=== PATIENT | female | born 2000 | race Caucasian/White ===

== ENCOUNTER 2021-06-19 20:16 | Outpatient (CLI) | payer OTHER ==
--- NOTE | 2021-06-19 21:22 | IPNPDOC ---
Text Note Date of Service The patient was seen on 06/19/21. NOTE Chief Complaint: Ms. Alcazar is a 20 year old G10 P[0] at [38+2] weeks gestation presenting to L&D triage for complaints of headache and hand swelling. Patient presents: spouse HPI: Reports she has had a headache for the past few days. Took 325mg tylenol earlier today a at 630 and 650mg after talking with this provider over the phone at 1830. States resting and tyelnol did not help with the frontal headache pain. Reports some swelling to hands making rings tight. States she drinks 3 bottles of water a day. Denies any leaking of fluid, vaginal bleeding. Reporting good movement. Denies any contractions. Denies any nausea, vomiting, RUQ pain today. Objective: VS: BP 127/71. P111 General: Alert. Well-appearing, in no acute distress PSYCH: Well groomed. Appropriate affect, normal mood. Conversed easily. Neuro: Oriented to time, place, and person. RESP: Unlabored breathing. CV: No cyanosis MSK: legs without edema bilaterally. minimal nonpitting edema to hands. Normal mvmt all extremities. Steady gait. Clarissa from a seated position without assistance. Obstetrical: FHR: 135 with moderate variability. Large accelerations present. No decels. Uterine irritability present. VTX by Sarahy A/P 20 year old G10 P[0] at [38+2] wks gestation evaluated in L&D triage for complaints of headache and swelling VSS and normal Benign physical exam Reactive NST, reassuring Plan: To increase PO hydration with water, rest. 2 regular strength tylenol every 4hrs as needed for pain. Educated on routine OB return precautions and warning signs. Follow up on [facility] as previously scheduled. KIRBY GUSTAFSON CNM Jun 19, 2021 21:22
== END 2021-06-19 21:23 | disposition home or self-care (01) ==
LOC: M LDO 20:16
PROVIDERS: ATTEND Advanced Practice Midwife
DX: O26.893 Other specified pregnancy related conditions, third trimester (principal); Z3A.38 38 weeks gestation of pregnancy; R51.9 Headache, unspecified; R22.33 Localized swelling, mass and lump, upper limb, bilateral
CPT/HCPCS: 59025; G0378; G0463

== ENCOUNTER 2021-07-05 00:40 | Inpatient (IN) | payer OTHER, SELFPAY ==
[2021-07-05] VITALS (39 sets, daily range): BP systolic 98–138; BP diastolic 53–87
[~2021-07-05] VITALS: Ht 160 cm; Wt 73.3 kg
[2021-07-05] MEDS ORDERED: LR 1,000 ML IV SCH ×2 (01:55→20:50)
[2021-07-05 02:17] LABS: HEMATOCRIT 34.2 % (36.0-47.0); HEMOGLOBIN 11.4 g/dl (12.0-15.5); MEAN CORPUSCULAR HEMOGLOBIN 28.4 pg (27.0-33.0); MEAN CORPUSCULAR HGB CONC 33.3 g/dl (32.0-36.5); MEAN CORPUSCULAR VOLUME 85.3 fl (80.0-96.0); PLATELET COUNT, AUTOMATED 234 10^3/uL (150-450); RED BLOOD COUNT 4.01 10^6/uL (4.00-5.40); WHITE BLOOD COUNT 9.4 10^3/uL (4.0-10.0)
--- NOTE | 2021-07-05 02:44 | HPEPDOC ---
Obstetrical History & Physical General Date of Admission Jul 05, 2021 at 01:44 History of Present Illness 20yo G1 at 40+3 presents for decreased movement which started earlier today. Denies vaginal bleeding, loss of fluid. Care Care: Good Care Dating Final EDC: Jul 01, 2021 Final EDC by: LMP, 1st trimester (US) Antepartum Course Height (inches): 63 Pre- weight (lbs.): 120 Admission Weight (lbs.): 161 Change in Weight (lbs.): 41 Past Medical History Past Obstetrical History : Past Obstetrical History: [employer] History: No pertinent history Past Medical History Medical History spina bifida oculta hip dysplasia [id number] syndrome Surgical History: Other (hip surgery, wisdom teeth) Family History Family History maternal grandmother - diabetes, high blood pressure, skin cancer maternal grandfather - heart attack Social History Marital Status: Family situation: Spouse/partner home Psychosocial History: No pertinent psych hx * Smoker: non-smoker Alcohol: Denies Drugs: denies Abuse Violence Screening Have you been hit/kicked/slapp: No Have you been sexually assault: No Imunizations Tdap status: current Influenza Status: current Allergies Coded Allergies: cefazolin (Verified Allergy, Intermediate, 07/05/21) Physical Examination Physical Examination GENERAL: Alert and oriented times three. ABDOMEN: Gravid and non-tender to touch. FETUS: Is vertex by ultrasound HEART RATE: Regular rate LUNGS: nonlabored breathing EXTREMITIES: No edema. Vital Signs/I&O Vital Signs Date Time Temp Pulse Resp B/P (MAP) Pulse Ox O2 Delivery O2 Flow Rate FiO2 07/05/21 01:01 97.8 101 18 110/73 (85) Laboratory Data 24H LABS Laboratory Tests 2 07/05/21 02:07: Nucleated Red Blood Cells % (auto) 0.0 CBC/BMP Laboratory Tests 07/05/21 02:07 Pertinent Laboratoy Data Blood Type: A+ RBC Antibody Screen: Negative Hepatitis B: Negative Rapid Plasma Reagin: Nonreactive Rubella: Immune Varicella: Immune Chlamydia/Gonorrhea: Negative Group B Streptococcus: Negative Quad Screen Test: Negative Cystic Fibrosis: Negative Glucose Tolerance Test: 142 Anatomy Ultrasound Ultrasound Date: February 10, 2021 Placenta Location: Anterior Normal Anatomy: Yes Placenta Previa: No Steroid Therapy Steroid Therapy: No Vaginal Examination Dilation: 1cm Effacement: 50% Station: -3 Cervical Consistency: Medium Cervical Position: Middle Presentation: Cephalic presentation Position: Vertex (occiput) Assessment Heart Rate (FHR): 130 Variability: Moderate Accelerations: Positive Decelerations: None Tocometer Contractions: Yes Frequency: every 2-5 min. Multi-drug resistant Organism: No history of MDRO Assessment/Plan Assessment Minerva Alcazar is a 20-year-old G1 at 40+3 weeks by LMP and 1T ultrasound. Presents to Labor and Delivery (L&D) for decreased movement. Bedside ultrasound revealed oligohydramnios MVP 1.7cm. Discussed recommendation for induction of labor for oligohydramnios and patient is amenable. She has a history of hip dysplasia currently shows enough range of movement to allow trial of labor. Also history of spina bifida oculta, anesthesia was consulted prior to admission to evaluate as epidural candidate. Plan Admit and orient. Loop Cutter and consent. Diet: clear liquid. Group B Streptococcus (GBS) [negative]. Labs and intravenous (IV) per unit protocol. Counseled on Pitocin and induction of labor (IOL). Lactated Ringers (LR): 125 mL/hr. Anticipate [normal spontaneous delivery ()]. C-S as appropriate. Labor and Delivery Counseling L&D consent We will deliver your baby through the vagina with possible assistance of forceps or vacuum device if needed for maternal or indications. Forceps and vacuum are devices that can assist with vaginal delivery when normal pushing efforts cannot achieve delivery on their own or when delivery is needed in an emergency for baby's well-being. Medications may be required to induce or augment (help) your labor in order to achieve a vaginal delivery. An episiotomy may be required to help your baby to delivery vaginally. You may also require repair of any lacerations or tears of your vagina or vulva that are caused by delivery. In some cases, emergencies can occur that require an emergency section delivery so quickly that there may not be enough time to stop and complete consent forms for section. Understand that if this occurs, your providers will discuss the need for a section with you before they proceed with surgery. section is the delivery of your baby through an incision in your abdomen. In some situations, section may be safer to mom and baby than continuing labor and is only performed when clinically indicated. Risks of vaginal delivery include but are not limited to: Bleeding, infection, injury to the vagina, pelvic structures, injury to baby, damage to the uterus, reactions to anesthesia, uterine rupture, risk of hysterectomy for life threatening bleeding, or . Medications used to induce or augment labor may increase your risk for infection, uterine tachysystole, uterine rupture, heart rate abnormalities, need for emergency delivery or possible hysterectomy, and hemorrhage. Additional risks for use of forceps and vacuum include: increased risk of perineal and vaginal lacerations, risk of urinary or bowel incontinence, increased risk of injury to baby with bruising, scratches, hematomas on the head, or intracranial bleeding. FERMIN CHAKRABORTY. DO Jul 05, 2021 02:44
[2021-07-05] MEDS ORDERED: BUTORPHANOL 2 MG/ML INJ (J0595) IV ONE (03:30)
[2021-07-05] MEDS ORDERED: PROMETHAZINE INJ 25 MG/ML VIAL (J2550) IM ONE (03:30)
[2021-07-05] MEDS ORDERED: OXYTOCIN 30 UNITS IN 0.9% NaCl 500ML IV BAG (J2590) As Ordered ONE ×3 (07:54→21:05)
[2021-07-05] MEDS ORDERED: METHYLERGONOVINE MALEATE 0.2 MG/ML VIAL (J2210) IM PRN (10:50)
[2021-07-05] MEDS ORDERED: LACTATED RINGER'S 1000 ML IV ONE (10:50)
[2021-07-05] MEDS ORDERED: OXYTOCIN INJ 10 UNITS/ML VIAL (J2590) IV PRN ×2 (10:50→19:10)
[2021-07-05] MEDS ORDERED: OXYTOCIN DRIP 30 UNITS in IV 1 EA IV PRN ×5 (10:50→19:10)
[2021-07-05 11:22] LABS: HIV 1&2 SCREEN CENTAUR NEGATIVE (NEGATIVE)
[2021-07-05] MEDS ORDERED: REFRIGERATOR IV KEYS XX PRN (13:20)
[2021-07-05] MEDS ORDERED: NALOXONE INJ 0.4MG/1ML VIAL (J2310 PER 1MG) IV PRN ×3 (13:20→20:35)
[2021-07-05] MEDS ORDERED: FENTANYL/ROPIVACAINE/NACL BAG 100 ML EPIDURAL SCH (13:20)
[2021-07-05] MEDS ORDERED: EPIDURAL/PCA KEYS XX PRN (13:20)
[2021-07-05] MEDS ORDERED: LACTATED RINGER'S 1000 ML IV PRN (13:20)
[2021-07-05] MEDS ORDERED: ONDANSETRON 4MG/2ML VIAL IV PRN ×3 (13:20→21:25)
[2021-07-05] MEDS ORDERED: diphenhydrAMINE 50MG/ML VIAL (J1200) IV PRN ×2 (13:20→20:35)
[2021-07-05] MEDS ORDERED: EPIDURAL COMMENT XX SCH (13:20)
[2021-07-05] MEDS: LR 1,000 ML IV SCH ×2 (13:58→16:20)
[2021-07-05] MEDS: ePHEDrine SULFATE 25 MG/5 ML(5MG/ML) SYRINGE IV PRN ×2 (14:02→14:08)
[2021-07-05] MEDS ORDERED: OXYTOCIN DRIP 30 UNITS in IV 1 EA IV SCH (14:30)
--- NOTE | 2021-07-05 15:01 | IPNPDOC ---
Text Note Date of Service The patient was seen on 07/05/21. NOTE 1459 CALLED RE PATIENT WITH DECELERATION AND SLOW RECOVERY. NOTED TO BE 9 CM QUICK DILITATION FROM 4 CM ALSO NOTED OLIGOHYDRAMNIOS CONTRACTIONS ADEQUATE WITHOUT AUGMENTATION WITH RESUSCITATION FHR BACK TO BASELINE . SAFE TP PROCEED VS,Fishbone, I+O VS, Fishbone, I+O Laboratory Tests 07/05/21 02:07 Vital Signs Date Time Temp Pulse Resp B/P (MAP) Pulse Ox O2 Delivery O2 Flow Rate FiO2 07/05/21 14:26 87 105/56 (72) 07/05/21 12:20 97.8 07/05/21 07:09 18 Oniel Montgomery MD Jul 05, 2021 15:01
--- NOTE | 2021-07-05 15:04 | IPNPDOC ---
Text Note Date of Service The patient was seen on 07/05/21. NOTE 07/05/21 REVIEW FOR PAIN MANAGEMENT HAD DENSON BULB IOL RE OLIGOHYDRAMNIOS BULB REMOVED 4 CM POSTERIOR STRETCHY. PLAN HAVE EPIDURAL THEN AROM . SAFE TO PROCEED VS,Corrie, I+O VS, Jassbone, I+O Laboratory Tests 07/05/21 02:07 Vital Signs Date Time Temp Pulse Resp B/P (MAP) Pulse Ox O2 Delivery O2 Flow Rate FiO2 07/05/21 14:26 87 105/56 (72) 07/05/21 12:20 97.8 07/05/21 07:09 18 Oniel Montgomery MD Jul 05, 2021 15:04
--- NOTE | 2021-07-05 15:08 | IPNPDOC ---
Text Note Date of Service The patient was seen on 07/05/21. NOTE 07/05/21 1355 EXAMINATION POST EPIDURAL AROM CLEAR FLUID STILL 4 CM STRETCHY NOT WELL APPLIED SAFE TO PROCEED IF UTERINE CONTRACTIONS FALL OFF POSSIBLE AUGMENTATION WITH PITOCIN VS,Fishbone, I+O VS, Fishbone, I+O Laboratory Tests 07/05/21 02:07 Vital Signs Date Time Temp Pulse Resp B/P (MAP) Pulse Ox O2 Delivery O2 Flow Rate FiO2 07/05/21 14:26 87 105/56 (72) 07/05/21 12:20 97.8 07/05/21 07:09 18 Oniel Montgomery MD Jul 05, 2021 15:08
[2021-07-05] MEDS ORDERED: AZITHROMYCIN INJ 500 MG, VIAL MATE ADAPTER 1 EACH in NS 250 ML IV ONE (19:10)
[2021-07-05] MEDS ORDERED: BUPIVACAINE HCL 0.25% 10ML VIAL SC SCH (19:10)
[2021-07-05] MEDS ORDERED: BICITRA 30ML SOLN UDC PO ONE (19:10)
[2021-07-05] MEDS ORDERED: ACETAMINOPHEN 650 MG SUPP PR SCH (19:10)
--- NOTE | 2021-07-05 19:22 | IPNPDOC ---
Text Note Date of Service The patient was seen on 07/05/21. NOTE 07/05/21 1900 hrs reassessment re patient at 9 cm thick all around not well applied to cervix contractions spacing attempted to augment with Pitocin 2munits late decelerations therefore d/c reviewed cs with risk hemorrhage infection perforation reoperation remote blood transfusion, remote hysterectomy for non reassuring strip and remote from delivery also infant admitted to nicu expressed understanding signed consent neonatology advised VS,Jassbone, I+O VS, Fishbone, I+O Laboratory Tests 07/05/21 02:07 Vital Signs Date Time Temp Pulse Resp B/P (MAP) Pulse Ox O2 Delivery O2 Flow Rate FiO2 07/05/21 17:49 98.0 80 20 129/64 (85) Oniel Montgomery MD Jul 05, 2021 19:22
[2021-07-05] MEDS ORDERED: LIDOCAINE 2% W/EPINEPHRINE 20ML VIAL **PRES FREE As Ordered ONE (19:24)
[2021-07-05] MEDS ORDERED: MORPHINE PRES-FREE INJ 10 MG/10 ML VIAL (J2274) As Ordered ONE (19:24)
[2021-07-05] MEDS ORDERED: KETOROLAC 60MG 2ML VIAL As Ordered ONE (19:31)
[2021-07-05] MEDS ORDERED: ONDANSETRON 4MG/2ML VIAL As Ordered ONE (19:31)
[2021-07-05] MEDS ORDERED: dexameTHASONE 4 MG/ML 1ML VIAL (J1100 PER 1MG) As Ordered ONE (19:31)
[2021-07-05] MEDS ORDERED: OXYTOCIN INJ 10 UNITS/ML VIAL (J2590) As Ordered ONE (19:51)
[2021-07-05] MEDS ORDERED: CLINDAMYCIN 900 MG in IV 1 EA IV ONE (20:00)
[2021-07-05] MEDS ORDERED: METOCLOPRAMIDE INJ 10MG/2ML VIAL (J2765 PER 1) As Ordered ONE (20:03)
[2021-07-05] MEDS ORDERED: PHENYLephrine 500MCG 5ML (100MCG/ML) SYRINGE As Ordered ONE (20:07)
[2021-07-05 20:17] LABS: CORD GAS ABE A -7.6; CORD GAS HCO3 A 22.6 MEQ/L; CORD GAS PCO2 A 65.6 mmHg; CORD GAS PH A 7.155 UNITS; CORD GAS TCO2 A 24.6 MEQ/L
[2021-07-05 20:21] LABS: CORD GAS HCO3 V 21.5 MEQ/L; CORD GAS O2 SAT V 18.6 %; CORD GAS PCO2 V 53.9 mmHg; CORD GAS PH V 7.218 UNITS; CORD GAS PO2 V 13.2 mmHg; CORD GAS TCO2 V 23.1 MEQ/L
[2021-07-05 20:24] LABS: CORD GAS PO2 A < 10.0 mmHg
[2021-07-05] MEDS ORDERED: NALBUPHINE HCL 10 MG/ML AMP (J2300) IV PRN (20:35)
[2021-07-05] MEDS ORDERED: METOCLOPRAMIDE INJ 10MG/2ML VIAL (J2765 PER 1) IV PRN (20:35)
[2021-07-05] MEDS ORDERED: ANUSOL HC CREAM 30GM TOP PRN (20:50)
[2021-07-05] MEDS ORDERED: MOM 30ML SUSPENSION UDC PO PRN (20:50)
[2021-07-05] MEDS ORDERED: ACETAMINOPHEN TAB 650MG DOSE (2X325MG) PO PRN (20:50)
[2021-07-05] MEDS ORDERED: ACETAMINOPHEN 500 MG TAB PO PRN (20:50)
[2021-07-05] MEDS ORDERED: OXYTOCIN INJ 10 UNITS/ML VIAL (J2590) IV ONE (20:50)
[2021-07-05] MEDS ORDERED: ACETAMINOPHEN 650 MG SUPP PR PRN (20:50)
[2021-07-05] MEDS ORDERED: IBUPROFEN 600MG TAB PO PRN (20:50)
[2021-07-05] MEDS ORDERED: MEASLES,MUMPS,RUBELLA VACCINE INJ (MMR-II) (90707) SC SCH (20:50)
[2021-07-05] MEDS ORDERED: DOCUSATE SODIUM 100MG CAPSULE PO PRN (20:50)
[2021-07-05] MEDS ORDERED: OXYTOCIN DRIP 30 UNITS in IV 1 EA IV ONE (20:50)
[2021-07-05] MEDS ORDERED: SIMETHICONE 80MG CHEW TAB PO PRN (20:50)
[2021-07-05] MEDS ORDERED: PERCOCET 5MG/325MG TAB PO PRN ×2 (20:50)
[2021-07-05] MEDS ORDERED: RHOGAM 300 MCG (1500 IU) INJ (J2790) IM SCH (20:50)
[2021-07-05] MEDS ORDERED: METHYLERGONOVINE MALEATE 0.2 MG TAB PO PRN (20:50)
[2021-07-05] MEDS ORDERED: KETOROLAC 30 MG/ML 1ML VIAL As Ordered ONE (21:08)
[2021-07-05] MEDS: KETOROLAC 30 MG/ML 1ML VIAL IV SCH (21:11)
[2021-07-05] MEDS ORDERED: KETOROLAC 30 MG/ML 1ML VIAL IV PRN (21:25)
[2021-07-05] MEDS ORDERED: fentaNYL 100 MCG/2 ML INJECTION (J3010) IV PRN (21:25)
[2021-07-05] MEDS ORDERED: oxyCODONE 5MG TAB PO PRN (21:25)
--- NOTE | 2021-07-05 21:38 | RO ---
OPERATIVE NOTE DATE OF OPERATION: 07/05/2021 This patient is a 20-year-old, 1, who was admitted at 40 and 4 weeks of gestation with decreased movement, oligohydramnios, being post-dates. PREOPERATIVE DIAGNOSIS: Nonreassuring heart tones, failure to descend, failure to dilate, remote from delivery. POSTOPERATIVE DIAGNOSIS: Nonreassuring heart tones, failure to descend, failure to dilate, remote from delivery plus hyperextension of the head. OPERATION PROPOSED: Primary section. OPERATION PERFORMED: Primary section. SURGEON: Oniel Montgomery M.D. PAYROLL LEAD: Amber Matamoros CNM for extraction, retraction, visualization without which the procedure could not be completed. ANESTHESIA: Epidural. ESTIMATED BLOOD LOSS: 200 mL DESCRIPTION OF PROCEDURE: After adequate timeout, prep and drape in the supine position, Avery catheter in the bladder draining clear urine. Acetaminophen suppository 1300 mg per rectum, sequentials in place, appropriate antibiotic therapy preop. A low transverse incision was made into the uterus, passing through abdominal layers to secure hemostasis. On opening the peritoneal cavity, we noticed this lady had been laboring. The presenting part we could feel through the upper part of the lower segment. Mobius was placed. Both tubes and ovaries appeared to be normal. The bladder was reflected well down anteriorly, a low transverse incision into the uterus. A clear liquor was noted. The baby was in a hyperextended state. With difficulty, we were able to extract the baby, delivering a livebirth female weighing 7 lb, 7 oz, 3380 gm, Apgars of 8 and 9 at 1 and 5 minutes respectively, arterial pH 7.15, base excess -7.6, venous pH 7.28, base excess -7.0. Three vessels in the cord, membranes and tissues intact. The uterus was manually removed, three vessels in the cord. Membranes and tissues intact. The lower segment was noted to be intact. We swept the uterus, no evidence of membranes or extra tissue. The uterus contracted well down under Pitocin. Oversewing the lower segment in two layers, imbricating the second layer and reperitonealization. With instrument and pad count correct, the Mobius was removed. Both ovaries and tubes were completely normal. The gutters were cleaned and then went ahead and closed the abdomen, running stitch for the peritoneum, the same for the fascia, interrupted for subcu, Marcaine 0.25% 10 mL to the skin and a Medipore dressing. The patient was then sent to recovery in good condition. Ismael GUERRA
[2021-07-06] VITALS (7 sets, daily range): BP systolic 106–128; BP diastolic 52–68
[2021-07-06] MEDS: KETOROLAC 30 MG/ML 1ML VIAL IV SCH ×3 (02:50→09:30)
[2021-07-06 06:13] LABS: HEMATOCRIT 26.7 % (36.0-47.0); MEAN CORPUSCULAR HEMOGLOBIN 29.2 pg (27.0-33.0); MEAN CORPUSCULAR HGB CONC 34.1 g/dl (32.0-36.5); MEAN CORPUSCULAR VOLUME 85.6 fl (80.0-96.0); PLATELET COUNT, AUTOMATED 196 10^3/uL (150-450); RED BLOOD COUNT 3.12 10^6/uL (4.00-5.40); WHITE BLOOD COUNT 15.9 10^3/uL (4.0-10.0)
[2021-07-06 06:19] LABS: HEMOGLOBIN 9.1 g/dl (12.0-15.5)
[2021-07-06] MEDS ORDERED: KETOROLAC 30 MG/ML 1ML VIAL IV ONE (09:25)
[2021-07-06] MEDS: PRENATAL VITAMINS CHEWABLE TABLET PO SCH (09:31)
--- NOTE | 2021-07-06 09:50 | IPN ---
PROGRESS NOTE DATE: 07/06/2021 SUBJECTIVE: This lady is a 20-year-old 1 now para 1 admitted for decreased movement, induction of labor and oligohydramnios, underwent a primary section, livebirth female infant, 7 pounds, 7 ounces, 3380 grams, Apgars of 8 and 9 at 1 and 5 minutes respectively. Arterial pH 7.15, base excess -7.6, venous pH is 7.28, base excess is -7.0. On her first day, we discussed phlebitis, cystitis, mastitis, endometritis, cellulitis, diet, exercise, pain management, perineal, breast and wound care. OBJECTIVE: On examination today, she is normocephalic, atraumatic. Neck with full range of motion. Pupils are equal and reactive to light. Distal pulses are symmetrical. No evidence of DVT/PE or superficial phlebitis. Chest is clear bilaterally at bases. No wheezes or rhonchi. No CVA tenderness. Abdomen was soft, four quadrant bowel sounds are noted. The incision is clean and dry. The uterus is two below. The Avery catheter will be removed today. She is draining a moderate amount of clear urine, passing gas and drinking fluids well. Her admitting hemoglobin was 11.4, hematocrit 34.2 and platelets are 234,000, her day #1 hemoglobin is pending. Vital signs: Her blood pressure is 107/65, respirations are 14, pulse is 68, temperature is 97.0. PLAN: To discharge tomorrow, to follow-up two week incision check, a six week check, [facility], pickup medications at [facility] on the way home. All questions were answered, a 20 minute discussion. Patient is anxious for discharge tomorrow. cc: [facility]
[2021-07-07] MEDS: IBUPROFEN 600MG TAB PO PRN ×3 (00:25→19:21)
[2021-07-07 02:00] VITALS: BP 108/58
[2021-07-07 05:55] VITALS: BP 115/70
--- NOTE | 2021-07-07 07:13 | IPNPDOC ---
Progress Note Date of Service: Jul 07, 2021 Day#: 2 Progress Note SUBJECT: Minerva is a 20 -year-old Gravida1 P1001 POD2 S/P PLCD at 40w4d of livebirth female weighing 7 lb, 7 oz,3380 gm, Apgars of 8 and 9 at 1 and 5 minutes respectively, arterial pH 7.15, base excess -7.6, venous pH 7.28, base excess -7.0. She has been ambulating, voiding spontaneously without issue and tolerating regular diet. bottle feeding without issue. Reports lochia is like a normal period. OBJECTIVE: VITAL SIGNS: Within normal limits, afebrile. Alert and oriented times three. normal work of breathing Heart rate: Regular rate and rhythm. Abdomen: Fundus firm at U-2. Soft, NTTP. [Minimal] lochia. ASSESSMENT: Minerva is a 20 -year-old Gravida1 P1001 POD2 S/P PLCD at 40w4d of livebirth female infant weighing 7 lb, 7 oz,3380 gm, Apgars of 8 and 9 at 1 and 5 minutes respectively, arterial pH 7.15, base excess -7.6, venous pH 7.28, base excess -7.0. Vitals within normal limits, afebrile, hemodynamically stable with no evidence of infection or anemia PLAN: 1. Discharge to home tomorrow. 2. Tylenol and Motrin for pain. 3. Encourage breast feeding and ambulation. 4. undecided for contraception. 5. Routine PP visit in 2 and 6 weeks in clinic. 6. Discussed return precautions at length. VS, I&O, 24H, Fishbone Vital Signs/I&O Vital Signs Date Time Temp Pulse Resp B/P (MAP) Pulse Ox O2 Delivery O2 Flow Rate FiO2 07/07/21 05:55 98.1 68 18 115/70 (85) 97 Room Air I&O- Last 24 Hours up to 6 AM 07/07/21 06:00 Intake Total 200 ml Output Total 1700 ml Balance -1500 ml SRINATH ROMERO MD Jul 07, 2021 7:13 am
[2021-07-07] MEDS: PRENATAL VITAMINS CHEWABLE TABLET PO SCH (09:31)
[2021-07-07 18:00] VITALS: BP 117/65
[2021-07-08] MEDS: IBUPROFEN 600MG TAB PO PRN (04:54)
--- NOTE | 2021-07-08 05:32 | OBDS ---
[facility] Obstetrical Discharge Sum. Obstetrical Discharge Summary Quarter Doper/Provider: FERMIN CHAKRABORTY DO Date: Jul 08, 2021 Time: 05:13 : 1 Term: 1 Pre-term: 0 Abortions: 0 Livin VDRL: Non-Reactive Rh: Positive Rubella: Immune Labor arrest of descent nonreassuring heart rate arrest of dilation remote from delivery Delivery Primary low transverse Sex: Female Infant Weight: pounds (7), ounces (7), grams (3380) Anesthesia: Regional Anesthesia Episiotomy none A/P, Post Course List any complications Admission diagnosis: oligohydramnios, term gestation. Discharge diagnosis: status post primary low transverse delivery Condition at Discharge: good Day of discharge exam: a&o x3, nonlabored breathing, abd appropriately tender postop +bowel sounds incision covered with dressing with minimal strikethrough, negative bilateral calf tenderness Discharge Instructions: Home Activity: as tolerated Diet: regular Medications: roll picker at [place] Follow-up: 2 weeks and 6 weeks at [facility] Other: Return to hospital/clinic for: fevers/chills, heavy vaginal bleeding (soaking a pad per hour), foul vaginal discharge, increasing pain redness discharge from your incision. Swelling of one leg greater than the other, this can be a sign of a dangerous blood clot. -do not lift anything heavier than the baby for 6 weeks -nothing in the vagina (no tampons, intercourse etc) for 6 weeks -you do not have to keep the incision covered. Wash gently in the shower and pat dry, do not scrub the incision. FERMIN CHAKRABORTY DO Jul 08, 2021 05:15
[2021-07-08] MEDS ORDERED: IBUP-1022 PO (05:37)
[2021-07-08] MEDS ORDERED: PRENCHW PO (05:37)
[2021-07-08] MEDS ORDERED: COLA100C5 PO (05:37)
[2021-07-08] MEDS ORDERED: PERCOCET PO (05:37)
[2021-07-08] MEDS ORDERED: ACET1TAB55 PO (05:37)
[2021-07-08 06:00] VITALS: BP 114/68
[2021-07-08] MEDS: PRENATAL VITAMINS CHEWABLE TABLET PO SCH (08:42)
== END 2021-07-08 12:11 | disposition home or self-care (01) | DRG 773 ==
LOC: M LDO 00:40 → M LDI 01:44 → M OBS 22:00
PROVIDERS: ADMIT Obstetrics & Gynecology; ATTEND Obstetrics & Gynecology
PROC: 3E033VJ Introduction of Other Hormone into Peripheral Vein, Percutaneous Approach (ICD-10-PCS; 2021-07-05)
PROC: 10907ZC Drainage of Amniotic Fluid, Therapeutic from Products of Conception, Via Natural or Artificial Opening (ICD-10-PCS; 2021-07-05)
PROC: 10D00Z1 Extraction of Products of Conception, Low, Open Approach (ICD-10-PCS; principal; 2021-07-05 19:09)
DX: O41.03X0 Oligohydramnios, third trimester, not applicable or unspecified (principal); O36.8130 Decreased fetal movements, third trimester, not applicable or unspecified; Z3A.40 40 weeks gestation of pregnancy; O48.0 Post-term pregnancy; O76 Abnormality in fetal heart rate and rhythm complicating labor and delivery; O62.0 Primary inadequate contractions; O64.0XX0 Obstructed labor due to incomplete rotation of fetal head, not applicable or unspecified; Z37.0 Single live birth

== ENCOUNTER → 2022-08-18 | Outpatient (REF) | payer OTHER ==
[~2022-08-18] MED LIST: ACET1TAB55 PO; COLA100C5 PO; IBUP-1022 PO; PERCOCET PO; PRENCHW PO
== END ==
LOC: M SFHCWAGY 16:51
PROVIDERS: ATTEND Advanced Practice Midwife
DX: Z34.92 Encounter for supervision of normal pregnancy, unspecified, second trimester (principal)

== ENCOUNTER 2023-01-10 11:38 | Emergency (ER) | payer OTHER ==
[~2023-01-10] VITALS: Ht 160 cm; Wt 25.5 kg
[2023-01-10] MEDS ORDERED: NS 1,000 ML IV ONE (12:00)
[2023-01-10] MEDS ORDERED: SERTRALINE (12:04)
[2023-01-10 12:31] LABS: HEMATOCRIT 29.3 % (36.0-47.0); HEMOGLOBIN 9.5 g/dl (12.0-15.5); MEAN CORPUSCULAR HEMOGLOBIN 27.1 pg (27.0-33.0); MEAN CORPUSCULAR HGB CONC 32.4 g/dl (32.0-36.5); MEAN CORPUSCULAR VOLUME 83.7 fl (80.0-96.0); PLATELET COUNT, AUTOMATED 203 10^3/uL (150-450); WHITE BLOOD COUNT 6.8 10^3/uL (4.0-10.0)
[2023-01-10 12:53] LABS: BLOOD UREA NITROGEN 10 MG/DL (9-23); CALCIUM LEVEL 8.4 MG/DL (8.5-10.1); CARBON DIOXIDE LEVEL 23 MMOL/L (20-31); CHLORIDE LEVEL 105 MMOL/L (98-107); CREATININE FOR GFR 0.47 MG/DL (0.55-1.30); GLOMERULAR FILTRATION RATE > 60.0 (>60); GLUCOSE, FASTING 96 MG/DL (60-100); SODIUM LEVEL 136 MMOL/L (136-145)
[2023-01-10 13:40] VITALS: BP 115/63
== END 2023-01-10 13:52 | disposition home or self-care (01) ==
LOC: M ED 11:38 → EDBD 11:38 → M ED 13:52
DX: O26.899 Other specified pregnancy related conditions, unspecified trimester (principal); Z3A.36 36 weeks gestation of pregnancy

== ENCOUNTER → 2023-01-12 | Outpatient (REF) | payer OTHER ==
[~2023-01-12] MED LIST changes: +FOLI1TAB11 PO; +PRENTAB9 PO; +SERTRALINE; +ZOLO100T PO
== END ==
LOC: MERGE 14:03 → M PLALAB 14:03
PROVIDERS: ATTEND Obstetrics & Gynecology
DX: Z34.83 Encounter for supervision of other normal pregnancy, third trimester (principal)

== ENCOUNTER → 2023-08-02 | Outpatient (CLI) | payer OTHER ==
[~2023-08-02] MED LIST changes: +ISOVUE-300 61% 100ML VIAL As Ordered ONE; +LIDOCAINE 1% MDV 20ML VIAL As Ordered ONE; +OXYC1TAB23 PO; +methylPREDNISolone 80MG/ML SUSP 1ML VIAL As Ordered ONE
== END ==
LOC: M RAD 12:24
PROVIDERS: ATTEND Student in an Organized Health Care Education/Training Program
DX: Q65.89 Other specified congenital deformities of hip (principal)
CPT/HCPCS: 20610; 77002; J1040; Q9967

== ENCOUNTER → 2025-08-26 | Outpatient (CLI) | payer OTHER ==
[~2025-08-26] MED LIST changes: -IBUP-1022 PO; +IBUP600T42 PO; -ISOVUE-300 61% 100ML VIAL As Ordered ONE; -LIDOCAINE 1% MDV 20ML VIAL As Ordered ONE; -methylPREDNISolone 80MG/ML SUSP 1ML VIAL As Ordered ONE
== END ==
LOC: M RAD 06:43
PROVIDERS: ATTEND Orthopaedic Surgery Orthopaedic Trauma
DX: M25.552 Pain in left hip (principal)